=== PATIENT | female | born 1985 | race Two or more races ===

== ENCOUNTER 2025-05-04 22:47 | Emergency (ER) | payer OTHER ==
[~2025-05-04] VITALS: Ht 142.2 cm; Wt 51.4 kg
[2025-05-04 22:55] VITALS: TEMP 98.2
[2025-05-04 23:35] LABS: APPEARANCE,URINE TURBID (CLEAR); GLUCOSE, URINE (UA) NEGATIVE (NEGATIVE); LEUKOCYTE ESTERASE ,URINE MODERATE (NEGATIVE); NITRATE,URINE NEGATIVE (NEGATIVE); OCCULT BLOOD,URINE LARGE (NEGATIVE); SPECIFIC GRAVITIY, URINE 1.025 (1.003-1.030)
[2025-05-04 23:39] LABS: PLATELET COUNT (AUTO) 366 K/uL (150-450); RED BLOOD CELL COUNT(AUTO) 4.00 MIL/uL (4.00-5.20); RED CELL DISTRIBUTION WIDTH 12.3 % (11.5-14.5); WHITE BLOOD COUNT (AUTO) 9.4 K/uL (4.5-11.0)
[2025-05-04 23:50] LABS: SQUAMOUS EPITHELIAL CELL,UR None Seen /LPF (None Seen)
[2025-05-04 23:53] LABS: CALCIUM, TOTAL 9.1 mg/dL (8.8-10.5); CREATININE 0.60 mg/dL (0.60-1.30); GLOMERULAR FILTR. RATE CALC > 60 mL/min (>60); GLUCOSE,RANDOM 96 mg/dL (70-110); SODIUM SERUM 135 mmol/L (136-145); UREA NITROGEN, BLOOD 10 mg/dL (7-18)
[2025-05-05 00:25] LABS: SULFOSALICYLIC ACID,URINE 4+ (Negative)
[2025-05-05 02:14] VITALS: BP 133/69; PULSE 71; RESP 16; O2SAT 99
== END 2025-05-05 02:39 | disposition home or self-care (01) ==
LOC: EMS 22:50
DX: O20.8 Other hemorrhage in early pregnancy (principal); O10.911 Unspecified pre-existing hypertension complicating pregnancy, first trimester; F12.90 Cannabis use, unspecified, uncomplicated; R10.20 Pelvic and perineal pain unspecified side; Z3A.12 12 weeks gestation of pregnancy
CPT/HCPCS: 76801; 80048; 81001; 81002; 84702; 85025; 99284